=== PATIENT | female | born 1990 | race Hispanic/Latino ===

== ENCOUNTER 2023-10-20 20:16 | Emergency (ER) | payer OTHER ==
[~2023-10-20] VITALS: Ht 162.6 cm; Wt 81.6 kg
[2023-10-20 20:40] LABS: ADD UA MICROSCOPIC YES; APPEARANCE,URINE CLEAR (CLEAR); BILIRUBIN,URINE NEGATIVE (NEGATIVE); COLOR,URINE LIGHT-YELLOW (YELLOW); GLUCOSE, URINE (UA) NEGATIVE (NEGATIVE); KETONES,URINE NEGATIVE (NEGATIVE); LEUKOCYTE ESTERASE ,URINE 25 Leu/uL (NEGATIVE); NITRATE,URINE NEGATIVE (NEGATIVE); OCCULT BLOOD,URINE SMALL (NEGATIVE); PROTEIN,URINE 10 mg/dL (NEGATIVE)
[2023-10-20 20:42] LABS: BACTERIA,URINE RARE /HPF (None Seen); MUCUS,URINE FEW LPF (None Seen); SQUAMOUS EPITHELIAL CELL,UR FEW /HPF (0-2)
[2023-10-20 20:56] LABS: BASOPHILS # (AUTO) 0.03 K/uL (0.00-0.20); BASOPHILS % (AUTO) 0.3 % (0.0-5.0); EOSINOPHILS # (AUTO) 0.22 K/uL (0.00-0.70); EOSINOPHILS % (AUTO) 1.9 % (0.0-8.0); HEMATOCRIT 40.5 % (36-48); IMMATURE GRANULOCYTE ABSOLUTE 0.03 K/uL (0-1); LYMPHOCYTES # (AUTO) 2.8 K/uL (1.0-4.8); LYMPHOCYTES % (AUTO) 24.4 % (21.0-51.0); MEAN CORPUSCULAR HEMOGLOBIN 30.3 pg (27.0-33.0); MEAN CORPUSCULAR HGB CONC 32.3 g/dL (32.0-36.0); MEAN CORPUSCULAR VOLUME 93.8 fL (79-99); MONOCYTES # (AUTO) 0.9 K/uL (0.1-1.0); MONOCYTES % (AUTO) 7.5 % (3.0-13.0); NEUTROPHILS # (AUTO) 7.5 K/uL (1.8-7.7); NEUTROPHILS % (AUTO) 65.6 % (40.0-77.0); PLATELET COUNT (AUTO) 383 K/uL (130-400); RED BLOOD CELL COUNT(AUTO) 4.32 MIL/uL (4.00-5.50); WHITE BLOOD COUNT (AUTO) 11.5 K/uL (4.8-10.8)
[2023-10-20] MEDS: METOCLOPRAMIDE 10 MG/2 ML VIAL IVP ONE (21:07)
[2023-10-20] MEDS: 0.9%NACL 1000ML 1,000 ML IV ONE (21:07)
[2023-10-20] MEDS: KETOROLAC 30MG VIAL (30MG/ML) IVP ONE (21:07)
[2023-10-20] MEDS: CEFTRIAXONE 1G VIAL IVPB ONE (21:07)
[2023-10-20] MEDS: FAMOTIDINE 20MG VIAL IV ONE (21:07)
[2023-10-20] MEDS: ONDANSETRON 4MG INJ IVP ONE (21:08)
[2023-10-20 21:14] LABS: CREATININE 0.7 mg/dL (0.5-1.0); POTASSIUM 4.1 mmol/L (3.5-5.1)
[2023-10-20 21:19] LABS: ALBUMIN 3.6 g/dL (3.5-5.0); BILIRUBIN,TOTAL 0.3 mg/dL (0.2-1.0); TOTAL PROTEIN, SERUM 7.3 g/dL (6.0-8.3)
[2023-10-20] MEDS ORDERED: IBUP-2070 PO (22:08)
[2023-10-20] MEDS ORDERED: CEFD300C3 PO (22:08)
[2023-10-20] MEDS ORDERED: TAMS-1 PO (22:08)
[2023-10-20 22:33] VITALS: BP 115/74; PULSE 70; RESP 19; O2SAT 100
== END 2023-10-20 22:57 | disposition home or self-care (01) ==
LOC: EDH 20:16
DX: N20.0 Calculus of kidney (principal); N83.202 Unspecified ovarian cyst, left side; N39.0 Urinary tract infection, site not specified
CPT/HCPCS: 99285; 74176; 96365; 96375; 80053; 85025; 81001; 81025; 36415; J3490; J0696; J2405; J1885; J2765

== ENCOUNTER 2024-04-30 12:12 | Emergency (ER) | payer OTHER ==
[~2024-04-30] VITALS: Ht 162.6 cm; Wt 79.8 kg
[~2024-04-30 12:12] MED LIST: CEFD300C3 PO; IBUP-2070 PO; TAMS-1 PO
--- NOTE | 2024-04-30 12:55 | ERN ---
ED Note History of Present Illness Stated Complaint: URINARY FREQUENCY Chief Complaint: Urinary Frequency Time Seen by MD: 12:14 Dictation: 33-year-old female presents to the ED for evaluation of urinary frequency onset 2 days ago. Patient reports left lower abdominal pain, nausea, back pain, but denies any fever, vomiting or any other associated symptoms at this time. Patient mentioned she began with left lower quadrant abdominal pain yesterday which radiates to her left lower back. History of kidney stones. Allergies: Coded Allergies: No Known Allergies (Unverified Allergy, Unknown, 10/20/23) Home Meds Active Scripts Ondansetron (Ondansetron Odt) 4 Mg Tab.rapdis, 1 TAB PO Q6HPRN PRN for nausea/vomiting for 4 Days, #16 TAB 0 Refills Prov:CLIVE CUI DO 04/30/24 Hydrocodone/Acetaminophen (Hydrocodon-Acetaminophen 5-325) 5 Mg-325 Mg Tablet, 1-2 TAB PO Q4HPRN PRN for pain for 5 Days, #30 TAB 0 Refills Prov:CLIVE CUI DO 04/30/24 Ibuprofen (Ibuprofen 800 mg Tab) 800 Mg Tab, 800 MG PO Q6H PRN for PAIN, #30 TAB Prov:CLIVE CUI DO 04/30/24 Tamsulosin HCl (Flomax) 0.4 Mg Cap.er.24h, 0.4 MG PO DAILY for 20 Days, #30 CAPSULE. Prov:CLIVE CUI DO 04/30/24 Tamsulosin HCl (Flomax) 0.4 Mg Cap.er.24h, 0.4 MG PO DAILY, #14 CAPSULE. Prov:KAROLINE JACINTO [employer]ELOPER 10/20/23 Cefdinir (Cefdinir) 300 Mg Capsule, 300 MG PO BID for 10 Days, #20 CAP Prov:KAROLINE JACINTO [employer] E[employer] DEVELOPER 10/20/23 Ibuprofen (Ibuprofen) 600 Mg Tablet, 600 MG PO Q6H PRN for PAIN, #30 TAB Prov:KAROLINE JACINTO [employer] E[employer] DEVELOPER 10/20/23 Past Medical History Past Medical History: Other Additional Past Medical Hx: IRREGULAR MENSTRATION Surgical History: Other Surgical History Other: D&C Family History: Negative Social History: Negative, Lives with family History: Not Applicable LMP: Jan 26, 2024 : 4 Para: 2 Aborts: 2 Review of System Dictation Constitutional: Negative for fever,chills, and weight loss Eyes: Negative for injury, pain,redness, and discharge ENT: Negative for injury,pain or swelling Cardiovascular: Negative for chest pain, palpitations, and edema Respiratory: Negative for shortness of breath, cough, and wheezing, Abdomen/GI: Positive for abdominal pain,nausea, negative for vomiting, diarrhea, and constipation Back: Positive for back pain Negative for injury : Positive for urinary frequency Negative for injury, bleeding and discharge MS/Extremity: Negative for injury and deformity Skin: Negative for rash, and discoloration Neuro: Negative for headache, weakness, numbness, tingling, and seizure Psych: Negative for suicide ideation, homicidal ideation, and hallucinations Initial Vital Sign VS Vital Signs Date Time Temp Pulse Resp B/P (MAP) Pulse Ox O2 Delivery O2 Flow Rate FiO2 04/30/24 12:14 97.5 90 18 128/95 98 Room Air 0 04/30/24 14:14 21 Physical Exam Dictation General: awake, alert, mild distress Head/Face: Normocephalic, atraumatic Eyes: PERRL, EOMI, vision at baseline ENT: oral cavity clear, TMs clear, no signs of infection Neck: Trachea midline, supple, no nuchal rigidity Cardiovascular: RRR, normal S1/S2, No MRGs, no JVD Respiratory: CTAB, no respiratory distress, No rales or wheezes Abdomen: Soft, moderate left lower quadrant tenderness, non-distended, normal bowel sounds, no guarding or rebound. Back: Left lumbar tenderness Skin: Warm, dry, normal turgor, no rash MS/Extremity: Pulses equal, no cyanosis, neurovascular intact, FROM Neuro: COAx4, GCS 15, strength 5/5, CN 2-12 intact, normal cerebellar exam, normal gait, Psych: Normal behavior, mood, and affect normal Results (Laboratory/Radiology) Laboratory/Radiology Laboratory Tests Test 04/30/24 13:19 04/30/24 14:09 White Blood Count 10.9 K/uL (4.8-10.8) H Red Blood Count 4.25 MIL/uL (4.00-5.50) Hemoglobin 12.6 g/dL (12.0-16.0) Hematocrit 39.2 % (36-48) Mean Corpuscular Volume 92.2 fL (79-99) Mean Corpuscular Hemoglobin 29.6 pg (27.0-33.0) Mean Corpuscular Hemoglobin Concent 32.1 g/dL (32.0-36.0) Red Cell Distribution Width 13.5 % (11.0-15.5) Platelet Count 417 K/uL (130-400) H Mean Platelet Volume 9.0 fL (7.5-10.5) Immature Granulocyte % (Auto) 0.5 % (0-1) Neutrophils (%) (Auto) 64.6 % (40.0-77.0) Lymphocytes (%) (Auto) 26.9 % (21.0-51.0) Monocytes (%) (Auto) 5.8 % (3.0-13.0) Eosinophils (%) (Auto) 1.8 % (0.0-8.0) Basophils (%) (Auto) 0.4 % (0.0-5.0) Neutrophils # (Auto) 7.0 K/uL (1.8-7.7) Lymphocytes # (Auto) 2.9 K/uL (1.0-4.8) Monocytes # (Auto) 0.6 K/uL (0.1-1.0) Eosinophils # (Auto) 0.20 K/uL (0.00-0.70) Basophils # (Auto) 0.04 K/uL (0.00-0.20) Absolute Immature Granulocyte (auto 0.05 K/uL (0-1) Nucleated Red Blood Cells 0.0 % (0.0-0.19) Sodium Level 137 mmol/L (136-145) Potassium Level 4.4 mmol/L (3.5-5.1) Chloride Level 102 mmol/L (101-111) Carbon Dioxide Level 25 mmol/L (21-32) Blood Urea Nitrogen 8 mg/dL (7-18) Creatinine 0.7 mg/dL (0.5-1.0) Glomerular Filtration Rate Calc 119 mL/min (>90) Random Glucose 99 mg/dL (70-105) Total Calcium 8.7 mg/dL (8.5-10.1) Total Bilirubin 0.3 mg/dL (0.2-1.0) Direct Bilirubin < 0.1 mg/dL (0.0-0.3) Aspartate Amino Transf (AST/SGOT) 20 U/L (10-37) Alanine Aminotransferase (ALT/SGPT) 22 U/L (12-78) Alkaline Phosphatase 82 U/L (50-136) Total Protein 7.5 g/dL (6.0-8.3) Albumin 3.7 g/dL (3.5-5.0) Lipase 48 U/L (16-77) Urine Color YELLOW (YELLOW) Urine Appearance CLOUDY (CLEAR) H Urine pH 6.0 (5.0-8.0) Urine Specific [place] 1.029 (1.001-1.031) Urine Protein 30 mg/dL (NEGATIVE) H Urine Glucose (UA) NEGATIVE mg/dL (NEGATIVE) Urine Ketones NEGATIVE mg/dL (NEGATIVE) Urine Occult Blood LARGE (NEGATIVE) H Urine Nitrate NEGATIVE (NEGATIVE) Urine Bilirubin NEGATIVE mg/dL (NEGATIVE) Urine Urobilinogen 4.0 mg/dL (0.2-1.0) H Urine Leukocyte Esterase 25 Janneth/uL (NEGATIVE) H Urine RBC TNTC /HPF (0-1) H Urine WBC 2-5 /HPF (0-1) H Urine Squamous Epithelial Cells FEW /HPF (0-2) Urine Bacteria None /HPF (None Seen) Urine HCG, Qualitative NEGATIVE (NEGATIVE) ED Course ED Course Orders Procedure Category Date Status Time Cbc With Differential LAB 04/30/24 Complete 12: ,Urine Test LAB 04/30/24 Complete 12: Urinalysis Profile LAB 04/30/24 Complete 12:27 Ct Abdomen/Pelvis W/O CT 04/30/24 Resulted Contrast 12:27 Lipase LAB 04/30/24 Complete 12:27 Basic Metabolic Panel LAB 04/30/24 Complete 12:27 0.9%Nacl 1000ml (Ns PHA 04/30/24 Complete 1000ml) 12:30 Hepatic Function Panel LAB 04/30/24 Complete 12:27 Ketorolac PHA 04/30/24 Complete Tromethamine 15mg/Ml 13:00 Hydromorphone 1 Mg PHA 04/30/24 Complete Inj (Dilaudid 1mg Inj 13:00 Current Medications Medications (Trade) Dose Ordered Sig/[place] Route PRN Reason Start Time Stop Time Status Last Admin Dose Admin Hydromorphone HCl (DiLAUDid 1MG INJ) 1 mg ONCE ONCE IVP 04/30/24 13:00 04/30/24 13:01 DC 04/30/24 13:25 Ketorolac Tromethamine (toRADol) 15 mg ONCE ONCE IV 04/30/24 13:00 04/30/24 13:01 DC 04/30/24 13:25 Sodium Chloride 1,000 ml @ 0 mls/hr ONCE ONCE IV 04/30/24 12:30 04/30/24 12:31 DC 04/30/24 13:25 Vital Signs Date Time Temp Pulse Resp B/P (MAP) Pulse Ox O2 Delivery O2 Flow Rate FiO2 04/30/24 15:35 98.2 72 16 106/56 98 Room Air* 0 21 04/30/24 14:14 98.1 90 16 128/95 99 Room Air* 0 21 04/30/24 12:14 97.5 90 18 128/95 98 Room Air 0 Medical Decision Making MDM MDM: Differential diagnosis: UTI, kidney stones, back pain Previous outside records reviewed: Old ER visits. Need for hospitalization: Patient does not meet criteria for hospitalization. Need for emergency major/minor surgery: No Patient's prior external medical records from other ER visits were reviewed by me as indicated. Prior testing and results from previous visits were reviewed. Prior tests were taken into account with medical decision making and resource utilization, independent historian/historians were used to obtain complete medical history. I independently interpreted the test that were performed, results were reviewed by me and considered findings on radiology if ordered. Medical management and examination interpretation discussions were had by me with other qualified healthcare professionals as indicated for the patient's care. CC: Left flank pain urgency Historian: Patient Comorbidities: Kidney stones Limitations by social determinants: None Vitals are stable Initial exam patient is in distress due to pain. She is uncomfortable unable to sit down. Differential diagnosis includes kidney stone, sepsis, UTI, other. Urinalysis shows blood otherwise unremarkable Patient's labs including CBC, BMP, liver function tests are unremarkable. Kidney function stable. CT scan of the abdomen and pelvis per my independent interpretation shows likely kidney stone in the left side. Consistent with the patient's presentation. Patient received IV Toradol and Dilaudid in the ER On re-evaluation she is completely pain-free. Discussed the plan with the patient. We will DC with tamsulosin pain controlled recommend urology follow up. DX & DISP Disposition: Discharge Departure Impression: Primary Impression: Left ureteral stone Condition: Stable Scripts Ondansetron (Ondansetron Odt) 4 Mg Tab.rapdis 1 TAB PO Q6HPRN PRN for nausea/vomiting for 4 Days, #16 TAB 0 Refills Prov: CLIVE CUI DO 04/30/24 Hydrocodone/Acetaminophen (Hydrocodon-Acetaminophen 5-325) 5 Mg-325 Mg Tablet 1-2 TAB PO Q4HPRN PRN for pain for 5 Days, #30 TAB 0 Refills Prov: CLIVE CUI DO 04/30/24 Ibuprofen (Ibuprofen 800 mg Tab) 800 Mg Tab 800 MG PO Q6H PRN for PAIN, #30 TAB Prov: CLIVE CUI DO 04/30/24 Tamsulosin HCl (Flomax) 0.4 Mg Cap.er.24h 0.4 MG PO DAILY for 20 Days, #30 CAPSULE.DR Prov: CLIVE CUI DO 04/30/24 Additional Instructions: You have a 5mm kidney stone on the left side. This is causing her pain. As we discussed, I recommend that you follow up with the urologist. Make an appointment on Thursday. Your lab work (CBC, BMP, LFTs, lipase, urinalysis) is stable. It was consistent with a kidney stone. Your kidney function is normal. There are no signs of significant infection. The CT scan shows the kidney stone but otherwise no abnormalities. You received IV Toradol and Dilaudid here in the ER. If you get another attack, I recommend that you take 800 mg of ibuprofen and a Ray tab. I have prescribed these medications. Take tamsulosin nightly until you pass the stone. As we discussed, this medicine may make you dizzy. Drink plenty of liquids. Avoid heavy salt products. Please return to the emergency department if you have any concerning symptoms such as persistent vomiting, high fever, significant pain that does not respond to the pain medications, or any other concerning symptoms. Referrals: SELF,REFERRAL (PCP) I have reviewed, & agreed with my scribe's, documentation. (Entered by Pastora David, acting as a scribe for Dr. Cui) I personally scribed for CLIVE CUI DO ([email or web address]) on 04/30/24 at 12:55. Electronically submitted by Pastora David ([email or web address]). I personally scribed for CLIVE CUI DO ([email or web address]) on 04/30/24 at 13:11. Electronically submitted by Pastora David ([email or web address]). CLIVE CUI DO Apr 30, 2024 12:55
[2024-04-30 13:24] LABS: BASOPHILS # (AUTO) 0.04 K/uL (0.00-0.20); BASOPHILS % (AUTO) 0.4 % (0.0-5.0); EOSINOPHILS % (AUTO) 1.8 % (0.0-8.0); HEMATOCRIT 39.2 % (36-48); IMMATURE GRANULOCYTE ABSOLUTE 0.05 K/uL (0-1); LYMPHOCYTES # (AUTO) 2.9 K/uL (1.0-4.8); LYMPHOCYTES % (AUTO) 26.9 % (21.0-51.0); MEAN CORPUSCULAR HEMOGLOBIN 29.6 pg (27.0-33.0); MEAN CORPUSCULAR HGB CONC 32.1 g/dL (32.0-36.0); MEAN CORPUSCULAR VOLUME 92.2 fL (79-99); MONOCYTES # (AUTO) 0.6 K/uL (0.1-1.0); MONOCYTES % (AUTO) 5.8 % (3.0-13.0); NEUTROPHILS % (AUTO) 64.6 % (40.0-77.0); PLATELET COUNT (AUTO) 417 K/uL (130-400); RED BLOOD CELL COUNT(AUTO) 4.25 MIL/uL (4.00-5.50); RED CELL DISTRIBUTION WIDTH 13.5 % (11.0-15.5); WHITE BLOOD COUNT (AUTO) 10.9 K/uL (4.8-10.8)
[2024-04-30] MEDS: ketOROlac 15MG/ML VIAL (15MG/ML) IV ONE (13:25)
[2024-04-30] MEDS: 0.9%NACL 1000ML 1,000 ML IV ONE (13:25)
[2024-04-30] MEDS: hydroMORPHone 1 MG INJ IVP ONE (13:25)
[2024-04-30 13:33] LABS: CARBON DIOXIDE 25 mmol/L (21-32); CHLORIDE 102 mmol/L (101-111); CREATININE 0.7 mg/dL (0.5-1.0); GLOMERULAR FILTR. RATE CALC 119 mL/min (>90); GLUCOSE,RANDOM 99 mg/dL (70-105); POTASSIUM 4.4 mmol/L (3.5-5.1); SODIUM SERUM 137 mmol/L (136-145); UREA NITROGEN, BLOOD 8 mg/dL (7-18)
[2024-04-30 13:39] LABS: ALANINE AMINOTRANSFERASE 22 U/L (12-78); ALBUMIN 3.7 g/dL (3.5-5.0); ASPARTATE AMINOTRANSFERASE 20 U/L (10-37); BILIRUBIN,DIRECT < 0.1 mg/dL (0.0-0.3); BILIRUBIN,TOTAL 0.3 mg/dL (0.2-1.0); TOTAL PROTEIN, SERUM 7.5 g/dL (6.0-8.3)
[2024-04-30 14:19] LABS: APPEARANCE,URINE CLOUDY (CLEAR); BILIRUBIN,URINE NEGATIVE (NEGATIVE); COLOR,URINE YELLOW (YELLOW); GLUCOSE, URINE (UA) NEGATIVE (NEGATIVE); KETONES,URINE NEGATIVE (NEGATIVE); LEUKOCYTE ESTERASE ,URINE 25 Leu/uL (NEGATIVE); NITRATE,URINE NEGATIVE (NEGATIVE); OCCULT BLOOD,URINE LARGE (NEGATIVE); PROTEIN,URINE 30 mg/dL (NEGATIVE)
[2024-04-30 14:22] LABS: ADD UA MICROSCOPIC YES
[2024-04-30 14:23] LABS: HCG,QUALITATIVE URINE NEGATIVE (NEGATIVE)
[2024-04-30 14:24] LABS: MUCUS,URINE MANY LPF (None Seen); RBC,URINE TNTC /HPF (0-1); SQUAMOUS EPITHELIAL CELL,UR FEW /HPF (0-2)
--- NOTE | 2024-04-30 14:53 | HMCIMG ---
CT ABDOMEN/PELVIS W/O CONTRAST HISTORY: Left flank pain COMPARISON: 10/20/2023 TECHNIQUE: Multiple sequential axial images of the abdomen and pelvis were obtained from the dome of the diaphragm through symphysis pubis. Patient was not given contrast through intravenous route. Oral contrast was not given. FINDINGS: No pleural effusion is seen bilaterally. There is no evidence of parenchymal disease or pulmonary nodule of the visualized lower lungs. Degenerative changes of the thoracolumbar spine are present. The heart is not enlarged. Liver is enlarged measuring 19 cm. The liver, spleen, adrenal glands and pancreas are unremarkable. No hydronephrosis is seen on the right. Minimal left hydronephrosis is seen. There is 5 mm renal stone in the left UV junction. Fecal material is seen in the colon. There are normal size retroperitoneal and mesenteric lymph nodes. No ascites is seen. Atherosclerotic changes are present. Pelvic sidewalls are symmetric bilaterally. Bladder is poorly distended. IMPRESSION: 1. There is 5 mm renal stone in the left UV junction. Minimal left hydronephrosis is seen. CT was performed with one or more following dose reduction techniques: automated exposure control, adjustment of the mA and kv according to patient's size, or use of a iterative reconstruction technique.
[2024-04-30] MEDS ORDERED: ONDA-243 PO (15:26)
[2024-04-30] MEDS ORDERED: HYDR-4060 PO (15:26)
[2024-04-30] MEDS ORDERED: IBUP-2077 PO (15:26)
[2024-04-30] MEDS ORDERED: TAMS-1 PO (15:26)
[2024-04-30 15:35] VITALS: BP 106/56; PULSE 72; RESP 16; TEMP 98.3; O2SAT 98
== END 2024-04-30 15:47 | disposition home or self-care (01) ==
LOC: EDH 12:12
DX: N13.2 Hydronephrosis with renal and ureteral calculous obstruction (principal); Z79.899 Other long term (current) drug therapy; Z98.890 Other specified postprocedural states
CPT/HCPCS: 99285; 74176; 96374; 96375; 80076; 80048; 83690; 85025; 81001; 81025; 36415; J1171; J7030; J1885